=== PATIENT | female | born 1995 | race Caucasian/White ===

== ENCOUNTER → 2022-05-25 | Outpatient (CLI) | payer OTHER | LOC: M WHC 09:31 | PROVIDERS: ATTEND Advanced Practice Midwife | DX: Z36.89 Encounter for other specified antenatal screening (principal); Z3A.19 19 weeks gestation of pregnancy ==

== ENCOUNTER → 2022-06-29 | Outpatient (CLI) | payer OTHER | LOC: M WHC 09:23 | PROVIDERS: ATTEND Advanced Practice Midwife | DX: Z36.2 Encounter for other antenatal screening follow-up (principal); Z3A.24 24 weeks gestation of pregnancy ==

== ENCOUNTER 2022-10-10 07:50 | Inpatient (IN) | payer OTHER ==
[~2022-10-10] VITALS: Ht 165.1 cm; Wt 128.7 kg
[2022-10-10] VITALS (56 sets, daily range): BP systolic 88–146; BP diastolic 44–98
[2022-10-10] MEDS ORDERED: SYNT50TA PO (08:07)
[2022-10-10] MEDS ORDERED: ASPI81CH48 PO (08:07)
[2022-10-10] MEDS ORDERED: PRENTAB9 PO (08:07)
[2022-10-10] MEDS ORDERED: HOME MED LIST COMPLETE! XX SCH (08:10)
[2022-10-10] MEDS ORDERED: LACTATED RINGER'S 1000 ML IV STA (08:56)
[2022-10-10 09:00] LABS: HEMATOCRIT 35.5 % (36.0-47.0); MEAN CORPUSCULAR HGB CONC 33.8 g/dl (32.0-36.5); MEAN CORPUSCULAR VOLUME 82.8 fl (80.0-96.0); PLATELET COUNT, AUTOMATED 235 10^3/uL (150-450); RED BLOOD COUNT 4.29 10^6/uL (4.00-5.40); WHITE BLOOD COUNT 11.2 10^3/uL (4.0-10.0)
[2022-10-10] MEDS ORDERED: TRANEXAMIC ACID INJection 1,000 MG in NS 100 ML IV PRN (09:00)
[2022-10-10] MEDS ORDERED: OXYTOCIN DRIP 30 UNITS in IV 1 EA IV SCH (09:00)
[2022-10-10] MEDS ORDERED: METHYLERGONOVINE MALEATE 0.2MG/ML 1ML VIAL IM PRN (09:00)
[2022-10-10] MEDS ORDERED: LIDOCAINE 1% MDV 20ML VIAL INFIL PRN (09:00)
[2022-10-10] MEDS ORDERED: LR 1,000 ML IV SCH ×2 (09:00)
[2022-10-10] MEDS ORDERED: CARBOPROST TROMETHAMINE 250 MCG/ML AMP IM PRN (09:00)
[2022-10-10] MEDS ORDERED: OXYTOCIN INJ 10UNITS/ML 1ML VIAL IM PRN (09:00)
[2022-10-10] MEDS ORDERED: OXYTOCIN INJ 10UNITS/ML 1ML VIAL IV PRN (09:00)
[2022-10-10] MEDS ORDERED: miSOPROStol 50MCG 1/2 TABLET PO PRN (09:00)
[2022-10-10] MEDS ORDERED: OXYTOCIN DRIP 30 UNITS in IV 1 EA IV PRN ×6 (09:00)
[2022-10-10] MEDS ORDERED: FENTANYL/ROPIVACAINE/NACL BAG 100 ML EPIDURAL SCH (17:40)
[2022-10-10] MEDS ORDERED: NALOXONE INJ 0.4MG/1ML VIAL IV PRN (17:40)
[2022-10-10] MEDS ORDERED: ePHEDrine SULFATE 25 MG/5 ML(5MG/ML) SYRINGE IVP PRN (17:40)
[2022-10-10] MEDS ORDERED: ONDANSETRON 4MG 2ML VIAL IV PRN (17:40)
[2022-10-10] MEDS ORDERED: EPIDURAL/PCA KEYS XX PRN (17:40)
[2022-10-10] MEDS ORDERED: diphenhydrAMINE 50MG/ML VIAL IV PRN (17:40)
[2022-10-10] MEDS ORDERED: LR 500 ML IV PRN (17:40)
[2022-10-10] MEDS ORDERED: RHOGAM 300MCG (1500IU) INJ IM SCH (22:05)
[2022-10-10] MEDS ORDERED: ceFAZolin SOD 3 GM in IV 1 EA IV ONE (22:05)
[2022-10-10] MEDS ORDERED: ANUSOL HC CREAM 30GM TOP PRN (22:05)
[2022-10-10 22:39] LABS: HEMATOCRIT 33.4 % (36.0-47.0); MEAN CORPUSCULAR HEMOGLOBIN 28.1 pg (27.0-33.0); MEAN CORPUSCULAR HGB CONC 32.9 g/dl (32.0-36.5); MEAN CORPUSCULAR VOLUME 85.4 fl (80.0-96.0); PLATELET COUNT, AUTOMATED 234 10^3/uL (150-450); RED BLOOD COUNT 3.91 10^6/uL (4.00-5.40); WHITE BLOOD COUNT 15.5 10^3/uL (4.0-10.0)
[2022-10-10] MEDS ORDERED: ceFAZolin SOD 2 GM in IV 1 EA IV ONE (23:00)
[2022-10-10] MEDS ORDERED: ceFAZolin SOD 1 GM in D5W MINI-BAG PLUS 50 ML IV ONE (23:00)
[2022-10-11] VITALS (19 sets, daily range): BP systolic 108–150; BP diastolic 55–72
[2022-10-11] MEDS: ACETAMINOPHEN 500 MG TAB PO PRN ×3 (00:51→20:52)
[2022-10-11] MEDS ORDERED: oxyCODONE 5MG TAB As Ordered ONE ×3 (01:32→09:25)
[2022-10-11] MEDS: oxyCODONE 5MG TAB PO PRN ×5 (01:35→17:30)
[2022-10-11] MEDS: IBUPROFEN 800 MG TAB PO PRN ×3 (01:35→18:28)
[2022-10-11] MEDS: DIBUCAINE 1% OINTMENT 30GM TOP PRN ×2 (02:36→17:25)
[2022-10-11 07:17] LABS: HEMATOCRIT 29.1 % (36.0-47.0); HEMOGLOBIN 9.7 g/dl (12.0-15.5); MEAN CORPUSCULAR HGB CONC 33.3 g/dl (32.0-36.5); MEAN CORPUSCULAR VOLUME 84.1 fl (80.0-96.0); PLATELET COUNT, AUTOMATED 207 10^3/uL (150-450); RED BLOOD COUNT 3.46 10^6/uL (4.00-5.40); WHITE BLOOD COUNT 17.4 10^3/uL (4.0-10.0)
[2022-10-11] MEDS: PRENATAL VITAMINS CHEWABLE TABLET PO SCH (08:24)
[2022-10-11] MEDS: DOCUSATE SODIUM 100MG CAPSULE PO SCH ×2 (08:25→20:52)
[2022-10-11] MEDS: FERROUS SULFATE 325MG TAB PO SCH (10:24)
[2022-10-11] MEDS: MOM 30ML SUSPENSION UDC PO PRN (10:24)
[2022-10-12 05:59] VITALS: BP 105/59
[2022-10-12] MEDS: DOCUSATE SODIUM 100MG CAPSULE PO SCH (08:21)
[2022-10-12] MEDS: PRENATAL VITAMINS CHEWABLE TABLET PO SCH (08:21)
[2022-10-12] MEDS: FERROUS SULFATE 325MG TAB PO SCH (08:21)
[2022-10-12] MEDS: DIBUCAINE 1% OINTMENT 30GM TOP PRN (08:34)
[2022-10-12] MEDS: IBUPROFEN 800 MG TAB PO PRN (08:34)
[2022-10-12] MEDS: MOM 30ML SUSPENSION UDC PO PRN (08:34)
[2022-10-12] MEDS ORDERED: MEASLES,MUMPS,RUBELLA VACCINE INJ (MMR-II) SC.IMMUN ONE (09:00)
== END 2022-10-12 13:08 | disposition home or self-care (01) | DRG 768 ==
LOC: M LDI 07:50 → M OBS 10-11 10:19
PROVIDERS: ADMIT Obstetrics & Gynecology; ATTEND Obstetrics & Gynecology
PROC: 0DQR0ZZ Repair Anal Sphincter, Open Approach (ICD-10-PCS; principal; 2022-10-10)
PROC: 10E0XZZ Delivery of Products of Conception, External Approach (ICD-10-PCS; 2022-10-10)
PROC: 10907ZC Drainage of Amniotic Fluid, Therapeutic from Products of Conception, Via Natural or Artificial Opening (ICD-10-PCS; 2022-10-10)
PROC: 3E0P7GC Introduction of Other Therapeutic Substance into Female Reproductive, Via Natural or Artificial Opening (ICD-10-PCS; 2022-10-10)
DX: O13.4 Gestational [pregnancy-induced] hypertension without significant proteinuria, complicating childbirth (principal); Z37.0 Single live birth; O99.284 Endocrine, nutritional and metabolic diseases complicating childbirth; E03.9 Hypothyroidism, unspecified; O99.214 Obesity complicating childbirth; E66.9 Obesity, unspecified; Z68.37 Body mass index [BMI] 37.0-37.9, adult; Z79.890 Hormone replacement therapy; Z79.82 Long term (current) use of aspirin; O70.23 Third degree perineal laceration during delivery, IIIc; O69.1XX0 Labor and delivery complicated by cord around neck, with compression, not applicable or unspecified; Z3A.39 39 weeks gestation of pregnancy